=== PATIENT | female | born 1970 | race Caucasian/White ===

== ENCOUNTER → 2016-09-22 | Outpatient (CLI) | payer OTHER ==
[~2016-09-22] MED LIST: ATARAX25 MG PO; EC NAPROSYN500 MG PO; PREDNICOT10 MG PO; [UNRECOGNIZED DRUG - REMARK] PO
== END | disposition home or self-care (01) ==
LOC: MAMMO 10:19
DX: Z12.31 Encounter for screening mammogram for malignant neoplasm of breast (principal)

== ENCOUNTER 2020-09-19 19:47 | Emergency (ER) | payer OTHER ==
[~2020-09-19] VITALS: Ht 160 cm; Wt 108.9 kg
[2020-09-19] MEDS ORDERED: SEPTDS PO (20:04)
== END 2020-09-19 20:11 | disposition home or self-care (01) ==
LOC: ED 19:47
DX: L02.01 Cutaneous abscess of face (principal); Z79.899 Other long term (current) drug therapy

== ENCOUNTER 2020-09-22 20:31 | Observation (INO) | payer OTHER ==
[~2020-09-22] VITALS: Ht 160 cm; Wt 115.7 kg
[~2020-09-22 20:31] MED LIST changes: +SEPTDS PO
[2020-09-22 21:15] VITALS: BP 152/102
[2020-09-22 22:06] LABS: BASO % 0.5 % (0.0-1.0); EOS # 0.2 10*3/uL (0.0-0.4); HEMATOCRIT 40.7 % (37.0-47.0); LYMPH # 2.4 10*3/uL (1.3-4.4); LYMPH % 30.8 % (27.0-41.0); MEAN CELL VOLUME 85.7 fl (81.0-99.0); MEAN CORPUSCULAR HGB 27.2 pg (27.0-31.0); MEAN CORPUSCULAR HGB CONC 31.7 g/dl (33.0-37.0); MEAN PLATELET VOLUME 9.1 fl (9.6-12.3); MONO # 0.8 10*3/uL (0.1-1.0); MONO % 10.1 % (3.0-9.0); NEUT # 4.3 10*3/uL (2.3-7.9); NEUT % 55.1 % (47.0-73.0); PLATELET COUNT AUTOMATED 235 10*3/uL (130-400); RED BLOOD COUNT 4.75 10*6/uL (4.10-5.10); RED CELL DISTRI WIDTH 14.8 % (0-14.5); WHITE BLOOD COUNT 7.8 10*3/uL (4.8-10.8)
[2020-09-22 22:20] LABS: ALBUMIN 3.4 gm/dl (3.1-4.5); ALKALINE PHOSPHATASE 96 U/L (45-117); BUN 12 mg/dl (7-24); CHLORIDE 107 mmol/L (98-107); POTASSIUM 3.6 mmol/L (3.5-5.1); SGOT/AST 19 IU/L (3-35); SGPT/ALT 45 U/L (12-78); SODIUM 137 mmol/L (136-145); TOTAL PROTEIN 7.2 gm/dL (6.4-8.2)
[2020-09-23 00:44] VITALS: BP 148/86
[2020-09-23 02:00] VITALS: BP 157/90
[2020-09-23 06:26] LABS: BASO % 0.6 % (0.0-1.0); EOS # 0.2 10*3/uL (0.0-0.4); EOS % 3.2 % (1.0-4.0); HEMATOCRIT 39.4 % (37.0-47.0); LYMPH # 2.5 10*3/uL (1.3-4.4); LYMPH % 36.9 % (27.0-41.0); MEAN CORPUSCULAR HGB 26.7 pg (27.0-31.0); MEAN CORPUSCULAR HGB CONC 30.7 g/dl (33.0-37.0); MEAN PLATELET VOLUME 9.4 fl (9.6-12.3); MONO # 0.6 10*3/uL (0.1-1.0); MONO % 8.8 % (3.0-9.0); NEUT # 3.4 10*3/uL (2.3-7.9); NEUT % 49.8 % (47.0-73.0); PLATELET COUNT AUTOMATED 205 10*3/uL (130-400); RED BLOOD COUNT 4.53 10*6/uL (4.10-5.10); RED CELL DISTRI WIDTH 14.8 % (0-14.5); WHITE BLOOD COUNT 6.8 10*3/uL (4.8-10.8)
[2020-09-23 06:41] LABS: BUN 9 mg/dl (7-24); CHLORIDE 106 mmol/L (98-107); CHOLESTEROL 162 mg/dL (<200); CREATININE 0.83 mg/dL (0.55-1.02); HDL CHOLESTEROL 41 mg/dl (40-60); LDL CHOLESTEROL 70 mg/dL (9-159); POTASSIUM 3.7 mmol/L (3.5-5.1); SODIUM 138 mmol/L (136-145); TRIGLYCERIDES 255 mg/dl (<150); VLDL CHOLESTEROL 51 mg/dL (6-40)
[2020-09-23 07:58] LABS: VITAMIN D, 25-HYDROXY 35.5 ng/mL (30-100)
[2020-09-23 08:19] VITALS: BP 180/102
[2020-09-23 11:45] VITALS: BP 176/96
[2020-09-23 16:00] VITALS: BP 113/47
[2020-09-23 20:00] VITALS: BP 132/59
[2020-09-24] VITALS: BP 139/69
[2020-09-24 08:00] VITALS: BP 140/66
[2020-09-24 11:45] VITALS: BP 163/80
[2020-09-24 13:10] VITALS: BP 141/69
[2020-09-24 13:25] VITALS: BP 155/80
[2020-09-24 13:40] VITALS: BP 151/78
[2020-09-24] MEDS ORDERED: DOXYCYCLINE100 M3 PO (16:39)
== END 2020-09-24 19:44 | disposition home or self-care (01) ==
LOC: ED 20:31 → 5E 09-23 00:14 → EDHOLD 09-23 00:14 → 5E 09-23 01:36
PROVIDERS: Emergency Medicine; Internal Medicine; ADMIT Student in an Organized Health Care Education/Training Program; ATTEND Student in an Organized Health Care Education/Training Program
DX: L02.01 Cutaneous abscess of face (principal); Z20.822 Contact with and (suspected) exposure to COVID-19; F32.9 Major depressive disorder, single episode, unspecified; R73.9 Hyperglycemia, unspecified; R79.82 Elevated C-reactive protein (CRP); E16.2 Hypoglycemia, unspecified; E66.01 Morbid (severe) obesity due to excess calories; E83.41 Hypermagnesemia; E78.1 Pure hyperglyceridemia; Z78.9 Other specified health status; Z68.42 Body mass index [BMI] 45.0-49.9, adult

== ENCOUNTER → 2020-10-01 | Outpatient (CLI) | payer OTHER ==
[~2020-10-01] MED LIST changes: +DOXYCYCLINE100 M3 PO
== END ==
LOC: WOUNDCARE 02:13
PROVIDERS: ATTEND Nurse Practitioner
DX: T81.89XA Other complications of procedures, not elsewhere classified, initial encounter (principal); L02.01 Cutaneous abscess of face; B95.7 Other staphylococcus as the cause of diseases classified elsewhere; F32.9 Major depressive disorder, single episode, unspecified; Y83.8 Other surgical procedures as the cause of abnormal reaction of the patient, or of later complication, without mention of misadventure at the time of the procedure; Y92.238 Other place in hospital as the place of occurrence of the external cause

== ENCOUNTER → 2020-10-08 | Outpatient (CLI) | payer OTHER | LOC: WOUNDCARE 00:26 | PROVIDERS: ATTEND Nurse Practitioner | DX: L02.01 Cutaneous abscess of face (principal); B95.7 Other staphylococcus as the cause of diseases classified elsewhere; F32.9 Major depressive disorder, single episode, unspecified ==

== ENCOUNTER 2024-11-14 19:02 | Emergency (ER) | payer MEDICAID ==
[~2024-11-14] VITALS: Ht 170.1 cm; Wt 107.2 kg
[2024-11-14] MEDS ORDERED: Ondansetron Hydrochloride 4 MG/2 ML VIAL IV ONE (20:05)
[2024-11-14] MEDS ORDERED: Meclizine Hydrochloride 25 MG TAB PO ONE (20:05)
[2024-11-14 20:23] LABS: BASO % 0.5 % (0.0-1.0); EOS # 0.2 10*3/uL (0.0-0.4); EOS % 2.6 % (1.0-4.0); HEMATOCRIT 41.2 % (37.0-47.0); MEAN CELL VOLUME 84.9 fl (81.0-99.0); MEAN CORPUSCULAR HGB 26.6 pg (27.0-31.0); MEAN CORPUSCULAR HGB CONC 31.3 g/dl (33.0-37.0); MEAN PLATELET VOLUME 9.1 fl (9.6-12.3); MONO # 0.9 10*3/uL (0.1-1.0); MONO % 11.2 % (3.0-9.0); NEUT # 3.9 10*3/uL (2.3-7.9); NEUT % 51.3 % (47.0-73.0); PLATELET COUNT AUTOMATED 234 10*3/uL (130-400); RED BLOOD COUNT 4.85 10*6/uL (4.10-5.10); RED CELL DISTRI WIDTH 14.5 % (0-14.5); WHITE BLOOD COUNT 7.6 10*3/uL (4.8-10.8)
[2024-11-14 20:48] LABS: ALKALINE PHOSPHATASE 64 U/L (46-116); BUN 11 mg/dl (9-23); CHLORIDE 105 mmol/L (98-107); CPK 64 U/L (34-171); POTASSIUM 4.1 mmol/L (3.4-5.1); SGPT/ALT 19 U/L (5-49); TOTAL PROTEIN 7.3 gm/dL (6.0-8.0)
[2024-11-14] MEDS ORDERED: Ondansetron4 MG PO (21:43)
[2024-11-14] MEDS ORDERED: Meclizine25 MG PO (21:43)
== END 2024-11-14 21:58 | disposition home or self-care (01) ==
LOC: ED 19:02
PROVIDERS: Emergency Medicine
DX: R42 Dizziness and giddiness (principal); Z79.899 Other long term (current) drug therapy; Z98.890 Other specified postprocedural states